=== PATIENT | male | born 1985 | race Asian ===

== ENCOUNTER 2022-11-13 11:48 | Emergency (ER) | payer OTHER ==
[~2022-11-13] VITALS: Ht 193 cm; Wt 102.1 kg
[2022-11-13 11:52] VITALS: TEMP 97
[2022-11-13 12:38] LABS: PLATELET COUNT 377 K/uL (142-355)
[2022-11-13 12:44] LABS: POTASSIUM 3.7 mmol/L (3.6-5.2)
[2022-11-13 14:00] VITALS: BP 117/84
== END 2022-11-13 14:15 | disposition home or self-care (01) ==
LOC: ED 11:48
PROVIDERS: Internal Medicine
DX: M54.59 Other low back pain (principal); R07.89 Other chest pain; Z20.822 Contact with and (suspected) exposure to COVID-19
CPT/HCPCS: 80053; 80307; 81002; 84484; 85027; 87502; 87635; 93005; 96372; 99283; J1885; U0003